=== PATIENT | female | born 1990 | race Caucasian/White ===

== ENCOUNTER 2018-01-30 16:41 | Emergency (ER) | payer MEDICAID, SELFPAY ==
[2018-01-30 16:41] VITALS: BP 128/67; PULSE 75; RESP 16; TEMP 36.5; O2SAT 100; BMI 35.2
--- NOTE | 2018-01-30 16:53 | ED.VISSUMM ---
- ER Visit Summary Date of Service: 01/30/18 Chief Complaint: Vertigo History of Present Illness: The patient is a 27 F presenting with vertigo. States her symptoms started around noon today when she woke up. She turned over and sat up in bed and she had spinning sensation. She has nausea and vomiting associated with this. It is worse when changing positions. She denies headache or vision changes. Denies dizziness or syncope. Denies other complaints. Physical Examination: Vitals are stable. Patient is afebrile. Alert no acute distress. HEENT exam is unremarkable. TMs normal bilaterally Neck is supple. Lungs are clear and equal bilaterally. Heart is regular rate and rhythm. Abdomen is soft nontender nondistended. Extremities are unremarkable. Skin is warm and dry. No focal neurologic deficit. Remainder of exam is unremarkable. Emergency Department Course and Treatment: Patient given IV fluids, meclizine, Zofran. HCG negative. On reevaluation, patient is feeling improved. She is able to turn her head and sit up without vertigo. She is given a prescription for meclizine. She is advised to follow-up with her primary care physician. Advise return to ED for worsening complaints. Disposition: Discharged home Impression: Benign positional vertigo This note was generated with [employer] dictation software. It may contain incorrect words, spelling, and punctuation that were not noted in review of the chart prior to signing ED Disposition - Plan for ED Patient: Chief Complaint: Dizziness Instructions: ED BPV Vertigo Prescriptions: Meclizine HCl 25 mg PO TID PRN PRN #20 tablet PRN Reason: Vertigo Referrals: Claudio Cota III, MD [Primary Care Provider] - Edd Moralez MD [STAFF PHYSICIAN] -
[2018-01-30 16:58] VITALS: BP 128/67; PULSE 79; RESP 16; O2SAT 98
[2018-01-30] MEDS: Meclizine HCl 25 MG Tablet PO (17:07)
[2018-01-30] MEDS: Ondansetron 4 MG/2 ML Vial IV (17:07)
[2018-01-30 18:09] LABS: Pregnancy, Serum, hCG Quali. NEGATIVE Negative (0-9 Nonpreg)
--- NOTE | 2018-01-30 18:42 | ED.DEP ---
ED Disposition - Plan for ED Patient: Chief Complaint: Dizziness Instructions: ED BPV Vertigo Prescriptions: Meclizine HCl 25 mg PO TID PRN PRN #20 tablet PRN Reason: Vertigo Referrals: Claudio Cota III, MD [Primary Care Provider] - Edd Moralez MD [STAFF PHYSICIAN] -
[2018-01-30 18:54] VITALS: BP 122/68; PULSE 73; RESP 15; RESP 18; O2SAT 98; O2SAT 99
--- NOTE | 2018-01-30 18:57 | ED.RN ---
pt WAS DISCHARGED AND WALKING OUT, UNABLE TO AMBULATE INDEPENDENTLY. PT BACK TO ROOM WITH DR. MAHMOOD AT BEDSIDE.
[2018-01-30] MEDS: diazePAM 5 MG Tablet PO (19:04)
--- NOTE | 2018-01-30 19:52 | ED.DEP ---
ED Disposition - Plan for ED Patient: Disposition: Home or Assisted Living Chief Complaint: Dizziness Instructions: ED BPV Vertigo Prescriptions: Ondansetron [Zofran Odt] 4 mg PO Q8H PRN PRN #10 tablet PRN Reason: Nausea Meclizine HCl 25 mg PO TID PRN PRN #20 tablet PRN Reason: Vertigo Referrals: Claudio Cota III, MD [Primary Care Provider] - Edd Moralez MD [STAFF PHYSICIAN] -
== END 2018-01-30 18:54 | disposition home or self-care (01) ==
PROVIDERS: Emergency Provider Emergency Medicine; Family Provider Family Medicine; PCP Family Medicine
DX: H81.10 Benign paroxysmal vertigo, unspecified ear (principal)
CPT/HCPCS: 84703; 96374; 99283; A4216; J2405

== ENCOUNTER → 2018-05-17 19:52 | Outpatient (CLI) | payer MEDICAID, SELFPAY ==
[2018-05-17 15:17] VITALS: BMI 35.2
[2018-05-23 11:45] LABS: HPV APTIMA, High Risk Negative (Negative)
--- OUTSIDE RECORDS SUMMARY | 2018-07-04 00:15 | XMS RPT_ITS ---
:1990 Author Organization [facility] Care Team Providers Name Role Phone Claudio Cota III Referring Unavailable Tammi Hernández Attending Unavailable Tammi Hernández Attending Unavailable Claudio Cota III Primary Care Unavailable Claudio Cota III Primary Care Unavailable Shanon Joshua Attending Unavailable PROBLEMS PROBLEMS No Problem Records FoundPROCEDURES PROCEDURES No Procedure Records FoundRESULTS RESULTS OYSTER SHUCKER OFFICE VISIT Observed: 05/17/2018 Status: F Source: [place] REPORT 11:36 PM [facility] REPOSITORY [facility] [address] [place] [place] [address] OFFICE VISIT Date of Service: 05/17/18 MR#: [id number] Acct: [id number] Name: SYBIL HENDERSON Rep #: [id number] : 1990 Provider: JIM Hernández Age/Sex: 28/F Location: [facility] Status: Signed Intake Vital Signs05/17/18 Body Mass Index (BMI) 35.2 05/17/18 Height 5 ft 4 in 05/17/18 Weight: 189 lb 05/17/18 Body Mass Index (BMI) 32.4 05/17/18 Blood Pressure 110/80 Intake Visit Reasons: ANNUAL - R/S FROM 05/04 Chief Complaint: est annual Hole Puncher Strap Required: No Is patient in pain?: No Allergies No Known Allergies Allergy (Verified 05/17/18 14:50) Medications levonorgestrel 20 mcg/24 hr (5 years) intrauterine device 1 insert INTRAUTERINE ONCE 05/17/18 [History Confirmed 05/17/18] Is last menstrual period known: No Post menopausal: No Patient : No : No PFSH Surgical History History of delivery (Acute) Family History Grandmother Cancer uterine Social History Smoking Status: Never smoker alcohol intake: never substance use type: does not use caffeine: Yes what type of physical activity do you participate in: walking seatbelt use: always do you feel safe at home: Yes additional social history: single Pregancy History 2 Elective abortions Hx Para 2 Spontaneous abortions Past Pregnancies Del. DateName GA/Weeks Outcome Route Bth WeighInfant GeLabor LgtAnesthesiDel LocatProvider FOB t n h a n HPI ANNUAL - R/S FROM 05/04: Details: SYBIL HENDERSON is a 28 year old who presents for annual exam. Happy with mirena IUD for contraception. Denies other concerns. Last PAP: 2014 History of abnormal PAP: yes, colp benign. No treatment ROS Const Constitutional: Denies fatigue, weight gain or weight loss Cardio Card: Denies chest pain Resp Resp: Denies cough or shortness of breath with activity GI GI: Denies abdominal pain, constipation, change in stools, vomiting or bloating : Reports as per HPI; denies urinary frequency, pelvic pain, urinary urgency, vaginal discharge, vaginal itching, urinary incontinence or difficulty urinating Exam Const General: cooperative, healthy appearing, no acute distress, well developed Orientation: alert, oriented to person, oriented to place [facility] Head: normal to inspection Neck Neck: normal visual inspection Thyroid: thyroid normal Lymphatic: no lymphadenopathy noted Chest Breast inspection: normal inspection of the breasts, normal inspection of the axillae Breast palpation: normal palpation of the breasts, normal palpation of the axillae, no axillary lymphadenopathy Resp Effort AND Inspection: normal respiratory effort GI Palpation: soft, nontender, no masses Rectal Exam: deferred External Female Exam: normal external appearance, normal appearance of the urethra Urethra: normal appearance of the urethra, normal palpation Speculum Exam - Vagina: normal appearance of the vagina, normal vaginal discharge Speculum Exam - Cervix: normal appearance of the cervix Bimanual Exam- Vagina AND Uterus: normal bimanual exam, uterine size normal, uterine shape normal, uterus non-tender Bimanual Exam- Adnexa, other: normal adnexae, no adnexal masses, adnexae non-tender, pelvic support normal Pelvic Support: normal Neuro General: alert, oriented x3 Psych Affect: normal affect Assessment AND Plan Problems 1. Encounter for gynecological examination without abnormal finding Z01.419 2. Papanicolaou smear for cervical cancer screening Z12.4 Plan - ABEBE Elaine Completed breast and pelvic exam Reviewed diet and exercise Pap thin prep pap with reflex HPV Contraception Mirena IUD needs removed 2020 RTO 1 year, prn with problems Tammi Hernández [employer] Medications New: Coding Level of Care Code Off vis,est,prev 18-39yrs Diagnoses Encounter for gynecological examination without abnormal finding Z01.419 Gynecological examination findings: abnormal findings ABSENT Papanicolaou smear for cervical cancer screening Z12.4 05/17/18 2336 <Electronically signed by Luh Monteiro MD> Date Luh Monteiro MD 05/17/18 1517<Electronically signed by Tammi LOMAS> Cosigner Signature: Date (if applicable) Tammi Hernández CC: PAP IG HPV APTIMA Collected: 05/17/2018 Status: F Source: [place] 16/18,45 2:50 PM [facility] REPOSITORY Order Comment: CYTOLOGY INFORMATION: - CLINICAL INFORMATION: - DATE LMP/MENOPAUSE: NOT GIVEN - COLLECTION VIAL: Thin Prep Vial - LABORATORY DIRECTOR SOURCE: CERVICAL/ENDOCERVICAL - COLLECTION TECHNIQUE: CX BROOM ONLY, BRUSH ONLY Specimen Comment: [id number] Specimen Comment: Source.............Cervix;Endocervix Specimen Comment: No. of containers..01 ThinPrep Vial TYPE CODE TESTS RESULT OUT OF RANGE REFERENCE UNITS LAB L7400.0800 . Normal DIAGN Comment Result Comment: NEGATIVE FOR INTRAEPITHELIAL LESION AND MALIGNANCY. LAB L7400.0900 . Normal ADEQ Comment Result Comment: Satisfactory for evaluation. Endocervical and/or squamous metaplastic cells (endocervical component) are present. LAB L7400.1400 . Normal PERFORM Comment Result Comment: Ramiro Garnica, Nurse Plastics (ASCP) LAB L7400.2575 . Normal TEST METHOD Comment Result Comment: This liquid based ThinPrep(R) pap test was screened with the use of an image guided system. LAB L7400.2600 . Normal . COMM LAB L7400.2700 . Normal PAPSMR Comment Result Comment: The Pap smear is a screening test designed to aid in the detection of premalignant and malignant conditions of the uterine cervix. It is not a diagnostic procedure and should not be used as the sole means of detecting cervical cancer. Both false-positive and false-negative reports do occur. LAB L7400.2760 Negative Normal HPV APTIMA, Negative HR Result Comment: This test detects fourteen high-risk HPV types (16/18/31/33/35/39/45/ 51/52/56/58/59/66/68) without differentiation. Performed at: [address] [id number] Clutch Assembler: Charleen Mandujano MD, Phone: [phone] Performed at: =[address] [id number] Clutch Assembler: Charleen Mandujano MD, Phone: [phone] Performed By: #### L7400.8202 #### [facility] (refer to report for specific site) refer to report for address and phone number DISCHARGE INSTRUCTION Observed: 01/30/2018 Status: F Source: [place] 7:52 PM [facility] REPOSITORY [facility] Medical Records Department [address] [place] [address] Discharge Instruction 01/30/181951 MR#: [id number] Acct: [id number] Name: SYBIL HENDERSON Rep #: [id number] : 1990 27 From: Shanon Joshua MD PCP: Claudio Cota III, MD Status: DEP ER ED Disposition - Plan for ED Patient: Disposition: Home or Assisted Living Chief Complaint: Dizziness Instructions: ED BPV Vertigo Prescriptions: Ondansetron [Zofran Odt] 4 mg PO Q8H PRN PRN #10 tablet PRN Reason: Nausea Meclizine HCl 25 mg PO TID PRN PRN #20 tablet PRN Reason: Vertigo Referrals: Claudio Cota III, MD [Primary Care Provider] - Edd Moralez MD [STAFF PHYSICIAN] - What to do if you have Problems For any increased pain, shortness of breath, bleeding, nausea or vomiting, chest pain, or any unexpected problems, contact your Primary Care Provider. Call [facility] ([phone]) or report to the closest Emergency Room. Call 911 if necessary. 01/30/181951 <Electronically signed by Shanon Joshua MD> Date Shanon Joshua MD Cosigner Signature (If Indicated): Date CC: Claudio Cota III, MD EMERGENCY DEPARTMENT Observed: 01/30/2018 Status: F Source: [place] SUMMARY 6:46 PM [facility] REPOSITORY [facility] Medical Records Department [address] [place] [address] Emergency Department Summary 01/30/181652 MR#: [id number] Acct: [id number] Name: SYBIL HENDERSON Rep #: [id number] : 1990 27 From: Shanon Joshua MD PCP: Claudio Cota III, MD Status: REG ER - ER Visit Summary Date of Service: 01/30/18 Chief Complaint: Vertigo History of Present Illness: The patient is a 27 F presenting with vertigo. States her symptoms started around noon today when she woke up. She turned over and sat up in bed and she had spinning sensation. She has nausea and vomiting associated with this. It is worse when changing positions. She denies headache or vision changes. Denies dizziness or syncope. Denies other complaints. Physical Examination: Vitals are stable. Patient is afebrile. Alert no acute distress. HEENT exam is unremarkable. TMs normal bilaterally Neck is supple. Lungs are clear and equal bilaterally. Heart is regular rate and rhythm. Abdomen is soft nontender nondistended. Extremities are unremarkable. Skin is warm and dry. No focal neurologic deficit. Remainder of exam is unremarkable. Emergency Department Course and Treatment: Patient given IV fluids, meclizine, Zofran. HCG negative. On reevaluation, patient is feeling improved. She is able to turn her head and sit up without vertigo. She is given a prescription for meclizine. She is advised to follow-up with her primary care physician. Advise return to ED for worsening complaints. Disposition: Discharged home Impression: Benign positional vertigo This note was generated with [employer] dictation software. It may contain incorrect words, spelling, and punctuation that were not noted in review of the chart prior to signing ED Disposition - Plan for ED Patient: Chief Complaint: Dizziness Instructions: ED BPV Vertigo Prescriptions: Meclizine HCl 25 mg PO TID PRN PRN #20 tablet PRN Reason: Vertigo Referrals: Claudio Cota III, MD [Primary Care Provider] - Edd Moralez MD [STAFF PHYSICIAN] - What to do if you have Problems For any increased pain, shortness of breath, bleeding, nausea or vomiting, chest pain, or any unexpected problems, contact your Primary Care Provider. Call [employer] Registry ([phone]) or report to the closest Emergency Room. Call 911 if necessary. [id number] <Electronically signed by Shanon Joshua MD> Date Shanon Joshua MD Cosigner Signature (If Indicated): Date CC: Claudio Cota III, MD DISCHARGE INSTRUCTION Observed: 01/30/2018 Status: F Source: [place] 6:43 PM [facility] REPOSITORY [facility] Medical Records Department [address] [place] [address] Discharge Instruction 01/30/181841 MR#: [id number] Acct: [id number] Name: SYBIL HENDERSON Rep #: [id number] : 1990 27 From: Shanon Joshua MD PCP: Claudio Cota III, MD Status: REG ER ED Disposition - Plan for ED Patient: Chief Complaint: Dizziness Instructions: ED BPV Vertigo Prescriptions: Meclizine HCl 25 mg PO TID PRN PRN #20 tablet PRN Reason: Vertigo Referrals: Claudio Cota III, MD [Primary Care Provider] - Edd Moralez MD [STAFF PHYSICIAN] - What to do if you have Problems For any increased pain, shortness of breath, bleeding, nausea or vomiting, chest pain, or any unexpected problems, contact your Primary Care Provider. Call [facility] ([phone]) or report to the closest Emergency Room. Call 911 if necessary. 01/30/181842 <Electronically signed by Shanon Joshua MD> Date Shanon Joshua MD Cosigner Signature (If Indicated): Date CC: Claudio Cota III, MD ,SERUM,HCG QUALI. Collected: Status: F Source: [place] 01/30/2018 5:03 PM [facility] REPOSITORY TYPE CODE TESTS RESULT OUT OF REFERENCE UNITS RANGE LAB L700.7000 0-9 Nonpreg Negative Normal HCGSQUAL NEGATIVE LAB L700.6700 =>Qualitative mIU/mL Normal HCG Qual < 1 triggr Performed By: #### L700.6800 #### [facility] [address] [place], [address] PROGRESS Observed: 07/31/2017 Status: COMPLETED Source: [place] 1:[address] [facility] REPOSITORY HNO ID: [id number] Author: Nehal (Shaylee) Sandip Service: (none) Author Type: Nurse Practitioner Type: Progress Notes Filed: 07/31/2017 1:35 PM Note Text: Subjective The history is provided by the patient and a relative. No sign language translator was used. HPI Sybil [place] is a 27 year old female who presents today for CC of burning, red eyes. This started over the past 24 hours She is also having yellow drainage Symptoms are worsened by nothing She has tried no treatment or medication. Risk factors children conjunctivitis PMH contact lens wearer. She denies any change or loss of vision, no pain in eyes BP 120/84 Pulse 76 Temp 36.7 ?C (98.1 ?F) (Tympanic) Resp 16 Wt 88.3 kg (194 lb 9.6 oz) BMI 33.4 kg/m2 ALLERGIES Allergen Reactions - No Known Drug Aller* ACTIVE PROBLEM LIST H/O Section Encounter for Supervision of Normal in Multigravida in Third Trimester Family History Problem Relation Age of Onset - None Mother - None Father Social History Marital status: Single Spouse name: Years of education: 13 Number of children: 1 Occupational History Occupation Employer Comment [employer] Social History Main Topics Smoking status: Never Smoker Smokeless status: Never Used Alcohol use: No Drug use: No Sexual activity: Yes Partners with: Male control/protection: Review of Systems Constitutional: Negative for chills, fever, malaise/fatigue and weight loss. HENT: Negative for congestion, ear discharge, ear pain and sore throat. Eyes: Positive for discharge and redness. Respiratory: Negative for cough. Gastrointestinal: Negative for abdominal pain, diarrhea, nausea and vomiting. Musculoskeletal: Negative for myalgias. Neurological: Negative for headaches. Objective Physical Exam Constitutional: She is oriented to person, place, and time and well-developed, well-nourished, and in no distress. HENT: Head: Normocephalic and atraumatic. Right Ear: Tympanic membrane, external ear and ear canal normal. Tympanic membrane is not injected, not erythematous, not retracted and not bulging. No middle ear effusion. Left Ear: Tympanic membrane, external ear and ear canal normal. Tympanic membrane is not injected, not erythematous, not retracted and not bulging. No middle ear effusion. Nose: Nose normal. Right sinus exhibits no maxillary sinus tenderness and no frontal sinus tenderness. Left sinus exhibits no maxillary sinus tenderness and no frontal sinus tenderness. Mouth/Throat: Uvula is midline, oropharynx is clear and moist and mucous membranes are normal. No oropharyngeal exudate, posterior oropharyngeal edema, posterior oropharyngeal erythema or tonsillar abscesses. Eyes: EOM are normal. Pupils are equal, round, and reactive to light. Right eye exhibits discharge. Left eye exhibits discharge. Right conjunctiva is injected. Left conjunctiva is injected. Fundoscopic exam: The right eye shows red reflex. The left eye shows red reflex. Neck: Normal range of motion. Neck supple. Pulmonary/Chest: Effort normal. Lymphadenopathy: Head (right side): No submental, no submandibular, no tonsillar, no preauricular and no posterior auricular adenopathy present. Head (left side): No submental, no submandibular, no tonsillar, no preauricular and no posterior auricular adenopathy present. She has no cervical adenopathy. Right: No supraclavicular adenopathy present. Left: No supraclavicular adenopathy present. Neurological: She is alert and oriented to person, place, and time. Skin: Skin is warm and dry. Psychiatric: Affect normal. Nursing note and vitals reviewed. ASSESSMENT/PLAN: 1. Conjunctivitis of both eyes, unspecified conjunctivitis type - ICD9: 372.30, ICD10: H10.9 - see medication orders - course and contagiousness issues discussed, including hand washing. - Instructed to call if high fever, development of periorbital redness or swelling, eye pain, visual changes, concerns or if symptoms persist. - CIPROFLOXACIN 0.3 % EYE DROPS Wash eye/eyes with diluted baby shampoo morning and night to remove crusted secretions. Place one drop of shampoo on washcloth and dilute with warm water and gently wash eyes. Use a different washcloth for each eye or you can use eye makeup remover pads for cleansing as well. Cool compresses for eye inflammation/irritation frequently throughout the day. Do not wear contacts for the next 7 days then begin wearing a new pair after that. No eye makeup for next 7 days, throw away any makeup that you used prior to this infection. Go to ER for any sudden loss of vision or severe vision changes. Follow up with PCP if no improvement in 1 week. Diagnosis and treatment plan were discussed and questions were answered to the patient's satisfaction. Pt acknowledged understanding of concepts and follow up plan. Specific signs and symptoms that would indicate the need for higher level of care were discussed in detail warranting prompt ER evaluation. Nehal Oropeza CNP ALLERGIES ALLERGIES DATE TYPE / CODE NAME / CODE REACTION SEVERITY SOURCE 05/17/2018 Drug No Known Unknown [facility] Allergy/416 Allergies/Q86266 Hospital 886613(SNOM 0388(RXNORM) Repository ED CT) 05/11/2006 Drug NO KNOWN DRUG [facility] Class/48454 ALLERGIES [facility] 1003(SNOMED Repository CT) ENCOUNTERS ENCOUNTERS ADMIT/DISCHARGE ACCOUNT ADMITTING ENCOUNTER LOCATION SOURCE NUMBER CLASS 05/17/2018 [id number] Ambulatory [facility] ing:LABSPEC Repository 05/17/2018/05/17/20 [id number] Ambulatory BMSBuilding:[address] [place] Repository 01/30/2018/01/31/20 [id number] Emergency [address] ing:ED Repository 07/31/2017/08/04/19 [id number] Ambulatory [address] Repository PAYERS PAYERS ENCOUNTER GUARANTOR PAYER SUBSCRIBER SOURCE 05/17/2018 [place] E Primary Insurance:[facility] SYBIL [id number] [facility] SANTIAGODOB: [facility] Number: [id number], [place] [id number] Repository [address]Zpj: (330) Date:[id number] [phone] () [address] [place] [address] 78496CL: 05/17/2018 Secondary NOT GIVENUNK [place] Insurance:SELF PAY [facility]: Effective Repository Date:2018-05-17 05/17/2018 [place]BIL E Primary Insurance:[facility] SYBIL E [place] [id number] COMMUNITY PLANPolicy SNYDERDOB: [facility] Number: [id number], [place] [id number] Repository [address]Uii: (330) Date:[id number] [phone] () [address] [place] [address]UH: 05/17/2018 Secondary NOT GIVENUNK [place] Insurance:SELF PAY [facility] Number: Effective Repository Date:2018-05-17 01/30/2018 SYBIL E Primary Insurance:[facility] SYBIL E [place] [id number] [facility] PLANPolicy SNYDERDOB: [facility] Number: [id number], [place] [id number] Repository [address]Esl: (330) Date:[id number] [phone] () [address] [place] [address] 52842MM: 01/30/2018 Secondary NOT GIVENUNK [place] Insurance:SELF PAY [facility] Number: Effective Repository Date:2018-01-30
== END ==
PROVIDERS: Family Provider Family Medicine; PCP Family Medicine; Visit Provider Nurse Practitioner Women's Health
DX: Z12.4 Encounter for screening for malignant neoplasm of cervix (principal)
CPT/HCPCS: 87624; 88175; G0145

== ENCOUNTER 2022-12-11 00:17 | Emergency (ER) | payer SELFPAY ==
[2022-12-11 00:18] VITALS: BP 135/72; PULSE 83; RESP 17; TEMP 36.2; O2SAT 99; BMI 75.9
[2022-12-11] MEDS: proMETHazine 25 MG/ML Syringe 12.5 MG IM (01:11)
[2022-12-11] MEDS: Meclizine HCl 25 MG Tablet PO (01:14)
--- NOTE | 2022-12-11 01:41 | EDS_ITS ---
HPI History of Present Illness Chief Complaint: Dizziness Narrative Narrative: 32-year-old female with history of vertigo presenting with dizziness. She describes it as vertiginous. She took some meclizine earlier but was not sure how much she took. She states it was a travel pack and she took 2 pills. She states her dizziness got a little bit better and then came back. No history of trauma. No fevers. No neck stiffness. She does have nausea and vomiting associated with this but she had this in the past. PFSH PFSH Home Medications levonorgestrel 21 mcg/24 hours (8 yrs) 52 mg intrauterine device (Mirena) 1 insert intrauterine ONCE 05/17/18 [History Last Taken Unknown] meclizine 25 mg tablet 25 mg PO TID PRN dizziness #20 tabs 12/11/22 [Rx Last Taken Unknown] promethazine 25 mg tablet 25 mg PO Q8H PRN PRN dizziness or vertigo #20 tabs 12/11/22 [Rx Last Taken Unknown] Allergy/AdvReac Type Severity Reaction Status Date / Time No Known Allergies Allergy Verified 12/11/22 00:18 Family History Grandmother Cancer uterine Surgical History History of delivery Social History Smoking Status: Never smoker alcohol intake: current details: occasionally substance use type: does not use caffeine: Yes what type of physical activity do you participate in: walking and weight training frequency: 3-4 times per week seatbelt use: always do you feel safe at home: Yes additional social history: 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[facility] [facility] ED Constitutional Constitutional ED: Denies chills, fever(s) or sweats Eyes Eyes: Reports other Details: Vertiginous dizziness ; Denies blurry vision or change in vision ENT ENT ED: Denies ear pain or sore throat Cardiovascular Cardiovascular: Denies chest pain, palpitations or racing heartbeat Respiratory/Chest Respiratory/Chest: Denies cough, dyspnea or sputum Gastrointestinal Gastrointestinal: Reports nausea and vomiting; Denies abdominal pain, constipation or diarrhea Genitourinary Genitourinary ED: Denies dysuria, hematuria or urinary frequency Musculoskeletal Musculoskeletal: Denies arthralgias, myalgias or neck pain Integumentary Denies abscess, Abrasions or rash Neurologic Neurologic: Denies headache(s), paresthesias or weakness Psychiatric Psychiatric: Denies anxiety, depression, suicidal ideation or suicidal thoughts Endocrine Endocrinology: Denies polydipsia or polyuria EXAM Physical Exam Const Vital Signs: 12/11/22 00:18 12/11/22 00:18 Temperature 97.1 F L Temperature Source Temporal Pulse Rate 83 Respiratory Rate 17 Respiratory Effort Normal Non-Labored Respiratory Pattern Normal Blood Pressure 135/72 H Blood Pressure Mean 93 Pulse Ox 99 Oxygen Delivery Method Room Air Positive well nourished General Appearance ED: NAD; Negative for pallor HEENT Reports moist mucous membranes HEENT Narrative: Positive [place] with nystagmus Eyes PERRL and EOMs intact bilaterally Chest Wall inspection of chest normal Resp clear to auscultation bilaterally Cardio regular rate and regular rhythm Neuro oriented x3 and CN's II-XII intact bilaterally Sensorium / Orientation: alert Psych mental status grossly normal Skin no rashes or lesions noted and no wounds General Skin Exam: Negative for jaundice or pallor MDM MDM MDM Narrative Medical decision making narrative: Patient with history of vertigo and positive [place]-Hallpike. She is given meclizine p.o. and Phenergan IM. Will reevaluate. On reevaluation at 230 the patient is ambulated and she is feeling better. She is given prescriptions for codeine and Phenergan for home. Return precautions discussed. Impression: 1. Benign positional vertigo Lab Data Attestation: I reviewed the patient's lab results. Discharge Plan Triage Chief Complaint: Dizziness ED Provider: Rasheed Mistry Dx/Rx/DC Orders Instructions: ED BPV Vertigo Prescriptions: New promethazine 25 mg tablet 25 mg PO Q8H PRN PRN (Reason: dizziness or vertigo) Qty: 20 0RF meclizine 25 mg tablet 25 mg PO TID PRN (Reason: dizziness) Qty: 20 0RF No Action Mirena 20 mcg/24 hr (5 years) intrauterine device 1 insert Intrauterine ONCE Primary Care Provider: Care Physician,No Primary Referrals: Edd Moralez MD [Med Staff - Active Staff] - 3-5 Days Care Physician,No Primary [Primary Care Provider] - Disposition Disposition: Home, Self Care
[2022-12-11 02:45] VITALS: BP 134/79; PULSE 68; RESP 16; O2SAT 97
== END 2022-12-11 03:19 | disposition home or self-care (01) ==
PROVIDERS: Emergency Provider Student in an Organized Health Care Education/Training Program; Visit Provider Student in an Organized Health Care Education/Training Program
DX: H81.10 Benign paroxysmal vertigo, unspecified ear (principal); R11.2 Nausea with vomiting, unspecified; Z79.899 Other long term (current) drug therapy
CPT/HCPCS: 96372; 99283; J7030